=== PATIENT | male | born 1975 | race Caucasian/White ===

== ENCOUNTER 2021-07-15 14:01 | Emergency (ER) | payer OTHER ==
[~2021-07-15] VITALS: Ht 182.9 cm; Wt 118.0 kg
[2021-07-15 14:19] VITALS: BP 155/109
[2021-07-15] MEDS ORDERED: NEOMY/BACITR/POLYMYXIN OINT PACKET. TP ONE ×2 (14:30→14:31)
--- NOTE | 2021-07-15 14:39 | PHYS DOC ---
Past History Additional Past Medical Histor: Crohn's Disease Additional Past Surgical Histo: Groin lipoma removal, L hand reconstructive surgery Smoking: Non-smoker Alcohol Use: Occasionally Drug Use: None General Adult EDM: Chief Complaint: LACERATION/AVULSION HPI: HPI: Patient is a 46 year old male who presents for a left ankle wound from a chainsaw. Pt states he was at work cutting down a tree when he lost control of the chainsaw and it cut the inside of his left ankle. He states the chainsaw went through his boot and sock before hitting his ankle. He denies any numbness. He can move his left foot and toes normally. He has some pain to touch around the wound but otherwise is not in pain. He notes "a few drops" of blood after the incident but no current bleeding. He otherwise is not complaining of any symptoms. He is not up to date on his tetanus booster. Review of Systems: Review of Systems: Constitutional: Denies fever or chills Respiratory: Denies cough or shortness of breath Cardiovascular: Denies chest pain or palpitations Musculoskeletal: Left ankle wound pain (see below) Integument: Wound to inner left ankle, pain to wound area Neurologic: Denies numbness or tingling around left ankle wound Complete systems were reviewed and found to be within normal limits, except as documented in this note. Current Medications: Current Meds: Current Medications Medications (Trade) Dose Ordered Sig/[facility] Start Time Stop Time Status Last Admin Dose Admin Neomycin/ Polymyxin/ Bacitracin (Triple Antibiotic Ointment) 1 pkt 1X ONCE 07/15/21 14:30 07/15/21 14:31 UNV Physical Exam: PE: Constitutional: Well developed, well nourished, no acute distress HENT: Normocephalic, atraumatic Eyes: Conjunctiva normal, no discharge Neck: Normal range of motion, supple Lungs & Thorax: No respiratory distress, equal chest rise and fall Skin: 2cm avulsion medial aspect of left ankle, no edema Back: No tenderness, no CVA tenderness Extremities: Tenderness to palpation to medial left ankle, ROM left ankle intact, no edema Neurologic: Alert and oriented X 3, normal sensory function, no focal deficits noted Psychologic: Affect normal, judgment normal EKG: EKG: [] Radiology/Procedures: Radiology/Procedures: [] Heart Score: C/O Chest Pain: N/A Course & Med Decision Making: Course & Med Decision Making Patient presented s/p chainsaw incident where he cut his medial left ankle. On physical exam, wound appears to be an avulsion. Given skin avulsion rather than laceration, skin repair not warranted. Wound was minimally debrided and cleaned before applying neosporin and a bandaid. Patient was given tetanus booster in ED. Patient stable for discharge with outpatient follow-up with PCP. Discussed findings and plan with patient, who acknowledges understanding and agreement. [] Dragon Disclaimer: Dragon Disclaimer: This electronic medical record was generated, in whole or in part, using a voice recognition dictation system. Departure Departure: Impression: Primary Impression: Avulsion of skin of foot Qualified Codes: S91.302A - Unspecified open wound, left foot, initial encounter Disposition: HOME / SELF CARE / HOMELESS Condition: STABLE Referrals: NON,STAFF (PCP) Patient Instructions: Deep Skin Avulsion Additional Instructions: Do not soak your wound. You may shower. Clean wound daily with soap and water. Change dressing 2 times daily. Use over the counter antibiotic ointment with each dressing change. Take [id number] ibuprofen and or Tylenol for pain or discomfort. AMINA GRIER DO Jul 15, 2021 14:39
[2021-07-15] MEDS ORDERED: DIPH,PERTUSS(ACELL),TET VAC/PF 0.5 ML SYRINGE. VAX IM ONE ×2 (14:51→15:00)
== END 2021-07-15 15:01 | disposition home or self-care (01) ==
LOC: ER 14:01
DX: S91.302A Unspecified open wound, left foot, initial encounter (principal); W26.8XXA Contact with other sharp object(s), not elsewhere classified, initial encounter; Y93.89 Activity, other specified; Y92.89 Other specified places as the place of occurrence of the external cause; Y99.8 Other external cause status
CPT/HCPCS: 90471; 90715; 99283-25